=== PATIENT | female | born 1965 | race Caucasian/White ===

== ENCOUNTER 2017-06-17 19:21 | Emergency (ER) | payer MEDICAID, OTHER ==
[2017-06-17 19:37] VITALS: TEMP 97.5
[2017-06-17] MEDS ORDERED: ACETAMINOPHEN 500 MG TAB PO ONE (19:58)
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
[2017-06-17 20:55] VITALS: BP 125/75; PULSE 83; RESP 16; O2SAT 95
== END 2017-06-17 20:53 | disposition home or self-care (01) ==
LOC: CED 19:21
DX: S16.1XXA Strain of muscle, fascia and tendon at neck level, initial encounter (principal); S29.012A Strain of muscle and tendon of back wall of thorax, initial encounter; G44.209 Tension-type headache, unspecified, not intractable; V53.5XXA Driver of pick-up truck or van injured in collision with car, pick-up truck or van in traffic accident, initial encounter; Y99.0 Civilian activity done for income or pay; Y93.89 Activity, other specified
CPT/HCPCS: 72050-PO; 72072-PO